=== PATIENT | male | born 2000 | race Caucasian/White ===

== ENCOUNTER → 2021-01-19 | Day surgery (SDC) | payer OTHER ==
[~2021-01-19] VITALS: Ht 172.7 cm; Wt 95.3 kg
[~2021-01-19] MED LIST: BUPIVACAINE HCL 50 ML ONE; CYAN-17 PO; EPINEPHrine HCL 1 MG/1 ML AMP ONE; HYDROmorphone HCL 2 MG/ML VL IV PRN; KETOROLAC TROMETH 60MG/2ML VIAL ONE; LIDOCAINE 1% HCL (LOCAL ANESTH.) INJ 20ML MDV ONE; MEPERIDINE HCL (25 MG/ML) 1ML VIAL ONE; MIDAZOLAM HCL 1MG/1ML-2 ML VIAL ONE; MORPHINE SULFATE 4 MG/ML SYR/VIAL IV PRN; ONDANSETRON HCL 4 MG/2 ML VIAL IV PRN; ONDANSETRON HCL 4 MG/2 ML VIAL ONE; PROPOFOL 10 MG/ML 20 ML IV ONE; ROCURONIUM 10MG/ML 10ML VIAL IV ONE; SODIUM CHLORIDE LOCK 10 ML ONE; SUCCINYLCHOLINE CHLORIDE 20 MG/ML 10ML VIAL IV ONE; [UNRECOGNIZED DRUG - CODE] XX; ceFAZolin 1GM/50ML 100 ML IV ONE; fentaNYL CITRATE 100 MCG/2 ML VL ONE; fentaNYL CITRATE 5 ML ONE
[2021-01-19 10:55] VITALS: BP 123/78
== END | disposition home or self-care (01) ==
LOC: SUR 06:17
PROVIDERS: ATTEND Orthopaedic Surgery Sports Medicine
DX: Z47.2 Encounter for removal of internal fixation device (principal); T84.84XA Pain due to internal orthopedic prosthetic devices, implants and grafts, initial encounter; E66.01 Morbid (severe) obesity due to excess calories; G89.29 Other chronic pain; F32.9 Major depressive disorder, single episode, unspecified; F41.9 Anxiety disorder, unspecified; Z20.822 Contact with and (suspected) exposure to COVID-19; Z98.890 Other specified postprocedural states; Z79.899 Other long term (current) drug therapy; Z68.33 Body mass index [BMI] 33.0-33.9, adult
CPT/HCPCS: 29834; 73070; 76000; 88300; J0171; J0330; J0690; J1885; J2001; J2175; J2250; J2405; J2704; J3010; J3490; U0003